=== PATIENT | female | born 1980 | race Caucasian/White ===

== ENCOUNTER 2018-05-16 12:52 | Emergency (ER) | payer OTHER ==
[~2018-05-16] VITALS: Ht 157.5 cm; Wt 85.7 kg
[~2018-05-16 12:52] MED LIST: HYDROCODON-ACE1 EACH PO; IBUPROFEN 800800 MG PO; KEFLEX500 MG PO; TOPAMAX200 MG PO; VICODIN 5-3001 EACH; VICODIN 5-5001 EACH PO; XANAX 0.5 MG0.5 M1; XANAX 0.5 MG0.5 M1 PO
[2018-05-16 13:00] VITALS: BP 127/83
== END 2018-05-16 13:28 | disposition home or self-care (01) ==
LOC: M.ERS 12:52
DX: S01.81XA Laceration without foreign body of other part of head, initial encounter (principal); Z88.1 Allergy status to other antibiotic agents; Z88.0 Allergy status to penicillin; Z88.2 Allergy status to sulfonamides; X58.XXXA Exposure to other specified factors, initial encounter; Y93.89 Activity, other specified; Y92.89 Other specified places as the place of occurrence of the external cause; Y99.8 Other external cause status